=== PATIENT | male | born 1950 | race Caucasian/White ===

== ENCOUNTER 2021-09-30 17:20 | Inpatient (IN) ==
[2021-09-30 19:11] LABS: Basophils % 0.1 %; Hematocrit 31.5 % (37.5-50.1); Hemoglobin 10.2 g/dL (12.9-16.9); Immature Granulocytes % 1.5 % (0-4); Lymphocytes # 0.8 K/mcL (0.6-4.6); Mean Corpuscular HGB Conc 32.4 g/dL (31.6-35.5); Mean Corpuscular Hemoglobin 29.2 pg (28.0-33.3); Mean Corpuscular Volume 90.3 fL (83.0-100.0); Monocytes # 2.1 K/mcL (0.0-1.3); Monocytes % 10.6 %; Neutrophils # 16.3 K/mcL (1.6-8.9); Platelet Count 132 K/mcL (140-400); Red Blood Count 3.49 M/mcL (4.19-5.50); Red Cell Distribution Width 13.5 % (11.5-14.5); Segmented Neutrophils % 83.8 %; White Blood Count 19.4 K/mcL (4.3-11.1)
[2021-09-30 19:14] LABS: Albumin 3.4 g/dL (3.5-5.7); Bilirubin,Direct 0.4 mg/dL (0.0-0.2); Bilirubin,Indirect 0.6 mg/dL (0.0-1.0); Calcium 8.7 mg/dL (8.6-10.3); Globulin 3.3 g/dL (2.4-3.5); Magnesium 1.5 mg/dL (1.6-2.6); Potassium 4.5 mEq/L (3.5-5.1); Total Protein 6.7 g/dL (6.4-8.9)
[2021-09-30 19:18] LABS: INR 1.5
[2021-09-30 19:19] LABS: Troponin I 0.04 ng/mL (< 0.04)
[2021-09-30 20:34] LABS: Bilirubin,Urine Negative (Negative); Blood,Urine Large (Negative); Clarity,Urine Ex.Turbid (Clear); Color,Urine Light-Brown (Yellow); Glucose,Urine (UA) 150 mg/dL (Normal); Ketones,Urine Trace mg/dL (Negative); Leukocyte Esterase,Urine Large (Negative); Nitrite,Urine Positive (Negative); PH,Urine 5.5 pH Units (5.0-8.0); Protein,Urine 200 mg/dL (Neg-Trace); Urobilinogen,Urine Normal (Normal)
[2021-09-30 20:35] LABS: WBC,Urine TNTC per hpf (0-3)
[2021-09-30 20:37] LABS: Bacteria,Urine Present per hpf (None-Few); Mucus,Urine Present per lpf (None-Few); RBC,Urine Present per hpf (0-3); Renal Epithelial Cells,Urine Present per hpf (None-Few); Squamous Epithelial Cell,Urine Present per hpf (None-Few)
[2021-09-30 20:38] LABS: Amorphous Sediment,Urine Present per hpf (None-Few); Hyaline Casts,Urine None Seen per lpf (None Seen)
[2021-09-30] MEDS ORDERED: cefTRIAXone 1,000 MG in 0.9 % Sodium Chloride Mini Bag 100 ML IVPB ONE (20:57)
[2021-09-30] MEDS ORDERED: 0.9 % Sodium Chloride 1,000 ML IV ONE (20:58)
[2021-09-30] MEDS ORDERED: Naloxone 0.4 MG/ML INJ IVP PRN (22:55)
[2021-09-30] MEDS ORDERED: Melatonin 3 MG TABLET PO PRN (22:55)
[2021-09-30] MEDS ORDERED: 0.9 % Sodium Chloride 1,000 ML IVC ONE (23:00)
[2021-09-30] MEDS ORDERED: *HR* Dextrose 50 % in Water (Syg) 50 ML SYRINGE IVP PRN (23:02)
[2021-09-30] MEDS ORDERED: Aspirin 325 MG TABLET PO ONE (23:02)
[2021-09-30] MEDS ORDERED: D5% in Water 1,000 ML IVC PRN (23:02)
[2021-09-30] MEDS ORDERED: Dextrose Gel 15 GM/37.5 ML TUBE PO PRN ×2 (23:02)
[2021-10-01] MEDS ORDERED: *HR* OxyCODONE Immed Rel 5 MG TABLET PO PRN (00:41)
[2021-10-01] MEDS ORDERED: *HR* HYDROcodone/Acet 5/325 mg TABLET PO PRN (00:42)
[2021-10-01 02:08] LABS: Basophils % 0.1 %; Immature Granulocytes % 3.3 % (0-4); Lymphocytes # 0.8 K/mcL (0.6-4.6); Lymphocytes % 4.8 %; Mean Corpuscular HGB Conc 33.3 g/dL (31.6-35.5); Mean Corpuscular Hemoglobin 29.9 pg (28.0-33.3); Mean Corpuscular Volume 89.6 fL (83.0-100.0); Mean Platelet Volume 11.8 fL (9.4-12.4); Monocytes # 1.6 K/mcL (0.0-1.3); Monocytes % 9.5 %; Neutrophils # 13.7 K/mcL (1.6-8.9); Platelet Count 111 K/mcL (140-400); Red Blood Count 3.35 M/mcL (4.19-5.50); Red Cell Distribution Width 13.3 % (11.5-14.5); Segmented Neutrophils % 82.3 %; White Blood Count 16.6 K/mcL (4.3-11.1)
[2021-10-01 02:24] LABS: BUN/Creatinine Ratio 14 (6-26); Blood Urea Nitrogen 29 mg/dL (8-23); Calcium 8.5 mg/dL (8.6-10.3); Carbon Dioxide 20 mEq/L (23-29); Chloride 98 mEq/L (98-107); Glucose 190 mg/dL (70-105); Magnesium 1.5 mg/dL (1.6-2.6); Osmolality,Calculated 283 (280-300); Potassium 4.1 mEq/L (3.5-5.1); Sodium 131 mEq/L (136-145); Troponin I < 0.03 ng/mL (< 0.04); eGFR For African Americans 39 (> 60); eGFR For Non-African Americans 32 (> 60)
[2021-10-01] MEDS ORDERED: 0.9 % Sodium Chloride 1,000 ML IVC ONE ×2 (03:01→08:07)
[2021-10-01] MEDS ORDERED: Gadolinium Contrast Agent (WT Based) IV PRN (03:33)
[2021-10-01] MEDS: Ondansetron ODT 4 MG TAB.RAPDIS SL PRN ×2 (03:58→13:13)
[2021-10-01] MEDS: Piperacillin/Tazobactam 3.375 GM in 0.9 % Sodium Chloride Mini Bag 100 ML IVPB SCH ×3 (03:58→19:34)
[2021-10-01] MEDS: *HR* Heparin 5,000 UNIT/ML VIAL SQ SCH ×2 (06:30→17:28)
[2021-10-01] MEDS: Insulin LISPRO 300 UNITS/3 ML VIAL SUBQ SCH ×3 (08:11→17:24)
[2021-10-01] MEDS: Aspirin 81 MG TAB.CHEW PO SCH (08:12)
[2021-10-01] MEDS: Metoprolol 100 MG TABLET PO SCH ×2 (08:13→19:34)
[2021-10-01] MEDS: amLODIPine 5 MG TABLET PO SCH (08:13)
[2021-10-01] MEDS ORDERED: cefTRIAXone 1,000 MG in Water for inj. (sterile) 10 ML IVP SCH (09:00)
[2021-10-01 11:33] LABS: Acinetobacter baumannii by PCR Not Detected (Not Detect); Candida albicans by PCR Not Detected (Not Detect); Candida glabrata by PCR Not Detected (Not Detect); Candida krusei by PCR Not Detected (Not Detect); Candida parapsilosis by PCR Not Detected (Not Detect); Candida tropicalis by PCR Not Detected (Not Detect); Enterobacter cloacae Cmplx PCR Not Detected (Not Detect); Enterococcus by PCR Not Detected (Not Detect); Escherichia coli by PCR Not Detected (Not Detect); Klebsiella oxytoca by PCR DETECTED (Not Detect); Klebsiella pneumoniae by PCR Not Detected (Not Detect); Proteus by PCR Not Detected (Not Detect); Pseudomonas aeruginosa by PCR Not Detected (Not Detect); Serratia marcescens by PCR Not Detected (Not Detect); Staphylococcus aureus by PCR Not Detected (Not Detect); Staphylococcus by PCR Not Detected (Not Detect); Streptococcus agalactiae(B)PCR Not Detected (Not Detect); Streptococcus by PCR Not Detected (Not Detect); Streptococcus pneumoniae PCR Not Detected (Not Detect); Streptococcus pyogenes (A) PCR Not Detected (Not Detect); blaKPC Carbapenem-Resist Gene Not Detected (Not Detect)
[2021-10-01] MEDS ORDERED: Prochlorperazine 10 MG/2 ML VIAL IVP PRN (13:15)
[2021-10-01] MEDS: Ondansetron 4 MG/2 ML VIAL IVP PRN ×2 (13:36→19:38)
[2021-10-01] MEDS ORDERED: Insulin LISPRO 300 UNITS/3 ML VIAL SUBQ SCH (21:00)
[2021-10-02] MEDS: Piperacillin/Tazobactam 3.375 GM in 0.9 % Sodium Chloride Mini Bag 100 ML IVPB SCH ×2 (03:27→12:54)
[2021-10-02 06:00] LABS: Calcium 8.2 mg/dL (8.6-10.3); Magnesium 1.9 mg/dL (1.6-2.6); Phosphorous 2.5 mg/dL (2.7-4.5); Potassium 3.7 mEq/L (3.5-5.1)
[2021-10-02] MEDS: *HR* Heparin 5,000 UNIT/ML VIAL SQ SCH (06:20)
[2021-10-02] MEDS: amLODIPine 5 MG TABLET PO SCH (07:51)
[2021-10-02] MEDS: Aspirin 81 MG TAB.CHEW PO SCH (07:51)
[2021-10-02] MEDS: Insulin LISPRO 300 UNITS/3 ML VIAL SUBQ SCH ×2 (07:51→12:26)
[2021-10-02] MEDS: Metoprolol 100 MG TABLET PO SCH (07:51)
[2021-10-02] MEDS: Ondansetron 4 MG/2 ML VIAL IVP PRN (07:57)
[2021-10-02] MEDS ORDERED: 0.9 % Sodium Chloride 1,000 ML IVC ONE (11:12)
[2021-10-02] MEDS ORDERED: levoFLOXacin 750 MG TABLET PO SCH (11:15)
[2021-10-02 11:51] VITALS: BP 125/73; PULSE 103; TEMP 98.3; O2SAT 92
== END 2021-10-02 16:47 | disposition short-term general hospital (02) | DRG 871 ==
LOC: EMEROOARM 17:20 → 2ANU 17:20 → SUATTDRO 23:06 → 2ANU 23:51
PROVIDERS: ADMIT Student in an Organized Health Care Education/Training Program; ATTEND Internal Medicine